=== PATIENT | female | born 1925 | race Caucasian/White ===

== ENCOUNTER 2016-10-09 18:34 | Inpatient (IN) | payer MEDICAID, MEDICARE ==
[~2016-10-09] VITALS: Ht 154.9 cm; Wt 67.3 kg
[2016-10-09] MEDS ORDERED: GLUCOPHAGE XR500 MG PO (19:21)
[2016-10-09] MEDS ORDERED: LEVOTHYROXINE0.05 M2 PO (19:22)
[2016-10-09] MEDS ORDERED: TOPROL XL25 MG PO (19:23)
[2016-10-09] MEDS ORDERED: SEROQUEL25 MG PO (19:24)
[2016-10-09 19:35] LABS: BASOPHIL % 0.3 % (0-2); PLATELET COUNT 377 x10^3mcL (130-400); RED CELL DISTRIBUTION WIDTH 13.9 % (11.5-14.5)
[2016-10-09 19:51] LABS: CARBON DIOXIDE 27.3 mmol/L (21-32); CHLORIDE SERUM 97 mmol/L (98-107); CREATININE SERUM 0.6 mg/dL (0.6-1.0); GLUCOSE SERUM 146 mg/dL (74-106); POTASSIUM SERUM 4.9 mmol/L (3.5-5.1); SODIUM SERUM 133 mmol/L (136-145)
[2016-10-09 19:52] LABS: UA SPECIFIC GRAVITY 1.025 (1.005-1.035); microscopic required? YES; urine erythrocyte TRACE (NEGATIVE)
[2016-10-09 19:56] LABS: ALBUMIN 3.2 g/dL (3.4-5.0); ALKALINE PHOSPHATASE 88 U/L (46-116); ALT/SGPT 25 U/L (14-59); AST/SGOT 20 U/L (15-37); BILIRUBIN TOTAL 0.58 mg/dL (0.20-1.00); LIPASE 120 IU/L (73-393); MAGNESIUM 1.8 mg/dL (1.8-2.4); TOTAL PROTEIN, SERUM 7.4 g/dL (6.4-8.2)
[2016-10-09 21:38] VITALS: BP 182/79
[2016-10-09 21:38] LABS: PHOSPHOROUS 3.6 mg/dL (2.5-4.9)
[2016-10-09 21:40] LABS: CHOLESTEROL/HDL RATIO 1.8
[2016-10-09 21:46] LABS: T3 TOTAL 0.78 ng/mL
[2016-10-09 21:48] LABS: FREE T4 2.03 ng/dL (0.76-1.46); FREE THYROXINE INDEX 4.4 ug/dL (1.4-4.5); T4(THYROXINE) 11.2 ug/dL (4.7-13.3)
[2016-10-10 02:22] VITALS: BP 139/57
[2016-10-10 04:20] LABS: BASOPHIL % 0.5 % (0-2); PLATELET COUNT 331 x10^3mcL (130-400); RED CELL DISTRIBUTION WIDTH 13.8 % (11.5-14.5)
[2016-10-10 05:21] VITALS: BP 135/62
[2016-10-10 05:31] LABS: CALCIUM 8.4 mg/dL (8.5-10.1); CARBON DIOXIDE 28.2 mmol/L (21-32); CHLORIDE SERUM 98 mmol/L (98-107); CREATININE SERUM 0.6 mg/dL (0.6-1.0); GLUCOSE SERUM 128 mg/dL (74-106); MAGNESIUM 1.5 mg/dL (1.8-2.4); PHOSPHOROUS 3.6 mg/dL (2.5-4.9); SODIUM SERUM 133 mmol/L (136-145)
[2016-10-10 09:44] VITALS: BP 142/70
[2016-10-10 15:02] VITALS: BP 102/53
[2016-10-10 17:07] VITALS: BP 141/68
[2016-10-10 21:02] VITALS: BP 155/72
[2016-10-11 05:32] VITALS: BP 123/62
[2016-10-11 05:59] LABS: BASOPHIL % 1.1 % (0-2); PLATELET COUNT 355 x10^3mcL (130-400); RED CELL DISTRIBUTION WIDTH 14.3 % (11.5-14.5)
[2016-10-11 06:17] LABS: CALCIUM 8.4 mg/dL (8.5-10.1); CARBON DIOXIDE 28.8 mmol/L (21-32); CHLORIDE SERUM 95 mmol/L (98-107); CREATININE SERUM 0.7 mg/dL (0.6-1.0); GLUCOSE SERUM 165 mg/dL (74-106); MAGNESIUM 2.4 mg/dL (1.8-2.4); PHOSPHOROUS 4.1 mg/dL (2.5-4.9); POTASSIUM SERUM 4.6 mmol/L (3.5-5.1); SODIUM SERUM 131 mmol/L (136-145)
[2016-10-11 09:40] VITALS: BP 142/66
[2016-10-11 13:57] VITALS: BP 178/70
[2016-10-11 16:57] VITALS: BP 140/56
[2016-10-11 21:48] VITALS: BP 156/66
[2016-10-12] VITALS (7 sets, daily range): BP systolic 115–179; BP diastolic 50–79
[2016-10-12 06:27] LABS: CALCIUM 8.4 mg/dL (8.5-10.1); CARBON DIOXIDE 30.8 mmol/L (21-32); CHLORIDE SERUM 94 mmol/L (98-107); CREATININE SERUM 0.6 mg/dL (0.6-1.0); GLUCOSE SERUM 155 mg/dL (74-106); MAGNESIUM 2.2 mg/dL (1.8-2.4); POTASSIUM SERUM 4.9 mmol/L (3.5-5.1); SODIUM SERUM 127 mmol/L (136-145)
[2016-10-12 06:53] LABS: BASOPHIL % 0.8 % (0-2); PLATELET COUNT 359 x10^3mcL (130-400); RED CELL DISTRIBUTION WIDTH 13.8 % (11.5-14.5)
[2016-10-12 15:03] LABS: CALCIUM 8.1 mg/dL (8.5-10.1); CARBON DIOXIDE 29.2 mmol/L (21-32); CHLORIDE SERUM 94 mmol/L (98-107); CREATININE SERUM 0.9 mg/dL (0.6-1.0); GLUCOSE SERUM 162 mg/dL (74-106); POTASSIUM SERUM 4.9 mmol/L (3.5-5.1); SODIUM SERUM 128 mmol/L (136-145)
[2016-10-13 05:43] LABS: BASOPHIL % 0.8 % (0-2); PLATELET COUNT 374 x10^3mcL (130-400); RED CELL DISTRIBUTION WIDTH 14.3 % (11.5-14.5)
[2016-10-13 06:00] VITALS: BP 114/69
[2016-10-13 06:09] LABS: CALCIUM 8.3 mg/dL (8.5-10.1); CARBON DIOXIDE 32.8 mmol/L (21-32); CHLORIDE SERUM 97 mmol/L (98-107); CREATININE SERUM 0.8 mg/dL (0.6-1.0); GLUCOSE SERUM 151 mg/dL (74-106); PHOSPHOROUS 3.3 mg/dL (2.5-4.9); POTASSIUM SERUM 4.8 mmol/L (3.5-5.1); SODIUM SERUM 134 mmol/L (136-145)
[2016-10-13 09:51] VITALS: BP 145/60
[2016-10-13 17:43] VITALS: BP 139/65
[2016-10-13 21:58] VITALS: BP 145/54
[2016-10-14 06:12] VITALS: BP 176/76
[2016-10-14 06:15] VITALS: BP 148/65
[2016-10-14 06:17] LABS: BASOPHIL % 1.2 % (0-2); PLATELET COUNT 384 x10^3mcL (130-400); RED CELL DISTRIBUTION WIDTH 14.3 % (11.5-14.5)
[2016-10-14 06:32] LABS: CALCIUM 8.7 mg/dL (8.5-10.1); CARBON DIOXIDE 35.5 mmol/L (21-32); CHLORIDE SERUM 96 mmol/L (98-107); CREATININE SERUM 0.6 mg/dL (0.6-1.0); GLUCOSE SERUM 123 mg/dL (74-106); MAGNESIUM 2.1 mg/dL (1.8-2.4); PHOSPHOROUS 2.6 mg/dL (2.5-4.9); POTASSIUM SERUM 4.8 mmol/L (3.5-5.1); SODIUM SERUM 134 mmol/L (136-145)
[2016-10-14 10:28] VITALS: BP 115/54
[2016-10-14] MEDS ORDERED: LEVAQUIN750 MG GT ×2 (11:15→15:01)
[2016-10-14] MEDS ORDERED: CLINDAMYCIN HC300 MG GT ×2 (11:17→15:01)
[2016-10-14] MEDS ORDERED: ZES5 GT (11:20)
[2016-10-14] MEDS ORDERED: COL100UDC GT (11:22)
[2016-10-14] MEDS ORDERED: IPRATROPIUM BROM3 M2 HHN (11:25)
[2016-10-14] MEDS ORDERED: ECO81 GT (11:40)
[2016-10-14] MEDS ORDERED: MVIL GT (12:45)
[2016-10-14 13:12] VITALS: BP 115/54
[2016-10-14] MEDS ORDERED: LAC PO ×2 (14:39→14:43)
[2016-10-14] MEDS ORDERED: QUETIAPINE FUMA25 M1 GT (15:01)
[2016-10-14] MEDS ORDERED: GLU500 GT (15:01)
[2016-10-14] MEDS ORDERED: TOP50 GT (15:01)
[2016-10-14] MEDS ORDERED: SYN5 GT (15:01)
[2016-10-14 22:28] VITALS: BP 149/68
== END 2016-10-15 00:20 | disposition home health service (06) | DRG 137 ==
LOC: ED 18:34 → MU 20:47 → DU 20:47 → MU 10-13 12:54
PROVIDERS: Emergency Medicine; Family Medicine; Student in an Organized Health Care Education/Training Program; ADMIT Family Medicine
DX: J69.0 Pneumonitis due to inhalation of food and vomit (principal); J96.00 Acute respiratory failure, unspecified whether with hypoxia or hypercapnia; N17.0 Acute kidney failure with tubular necrosis; I50.43 Acute on chronic combined systolic (congestive) and diastolic (congestive) heart failure; E44.0 Moderate protein-calorie malnutrition; I24.8 Other forms of acute ischemic heart disease; D68.69 Other thrombophilia; E11.59 Type 2 diabetes mellitus with other circulatory complications; E11.65 Type 2 diabetes mellitus with hyperglycemia; I16.0 Hypertensive urgency; I11.0 Hypertensive heart disease with heart failure; M94.0 Chondrocostal junction syndrome [Tietze]; I08.3 Combined rheumatic disorders of mitral, aortic and tricuspid valves; E87.1 Hypo-osmolality and hyponatremia; D63.8 Anemia in other chronic diseases classified elsewhere; E03.9 Hypothyroidism, unspecified; Z93.1 Gastrostomy status; Z74.01 Bed confinement status; Z95.0 Presence of cardiac pacemaker; Z68.28 Body mass index [BMI] 28.0-28.9, adult; Z79.84 Long term (current) use of oral hypoglycemic drugs
CPT/HCPCS: 82962; 83880; 84439; C9113; J0360; J1940; J1956; J2543; J3475; J3490; J7030; J7050; J7620; J7626; Q0092